=== PATIENT | female | born 1980 | race African-American/Black ===

== ENCOUNTER 2017-02-18 15:04 | Emergency (ER) | payer OTHER ==
[~2017-02-18] VITALS: Ht 154.9 cm; Wt 82.1 kg
[2017-02-18 15:10] VITALS: BP 148/93
[2017-02-18] MEDS ORDERED: KETOROLAC TROMETH 60MG/2ML VIAL IM ONE (19:00)
== END 2017-02-18 19:46 | disposition home or self-care (01) ==
LOC: ER 15:15
DX: S10.93XD Contusion of unspecified part of neck, subsequent encounter (principal); S00.93XD Contusion of unspecified part of head, subsequent encounter; R20.0 Anesthesia of skin
CPT/HCPCS: 96372; 99283; J1885